=== PATIENT | female | born 1985 | race Caucasian/White ===

== ENCOUNTER 2020-12-23 20:03 | Emergency (ER) | payer BC ==
[~2020-12-23] VITALS: Ht 154.9 cm; Wt 45.5 kg
--- NOTE | 2020-12-23 20:29 | ED Upper Extremity ---
General Stated Complaint: FINGER INJURY Source: patient Exam Limitations: no limitations History of Present Illness Date Seen by Provider: Dec 23, 2020 Time Seen by Provider: 20:27 Initial Comments To ER with a right thumb injury. Was doing some home repairs when she got a large splinter in the pad of the right thumb. Tetanus is not up-to-date. They were able to remove the splinter and they think that they removed all of it. However there is significant pain to the right thumb, she cannot flex it at the IP joint and it is now swollen. Onset: just prior to arrival Severity: moderate Pain/Injury Location: right thumb Method of Injury: direct blow Modifying Factors: Worse With Movement Allergies and Home Medications Allergies Coded Allergies: No Known Drug Allergies (Unverified , 12/23/20) Patient Home Medication List Home Medication List Reviewed: Yes Review of Systems Constitutional: see HPI EENTM: see HPI Respiratory: no symptoms reported Cardiovascular: no symptoms reported Genitourinary: no symptoms reported Musculoskeletal: see HPI Skin: no symptoms reported Psychiatric/Neurological: No Symptoms Reported Physical Exam Vital Signs Capillary Refill : Height, Weight, BMI Height: '" Weight: lbs. oz. kg; BMI Method: General Appearance: WD/WN, no apparent distress Respiratory: no respiratory distress, no accessory muscle use Shoulder: normal inspection, non-tender Elbow/Forearm: normal inspection, non-tender Wrist: Yes normal inspection, Yes non-tender Hand: Right (There is a puncture wound to the pad of the right thumb, there is significant swelling to the pad of the thumb) Neurologic/Tendon: normal sensation Neurologic/Psychiatric: alert, normal mood/affect, oriented x 3 Skin: normal color, warm/dry Progress/Results/Core Measures Results/Orders My Orders Orders - DANILO ALVAREZ APRN Hand, Right, 3 Views (12/23/20 20:26) Rx-Hydrocodone/Apap 5-325 Mg (Rx-Vicodin (12/23/20 20:30) Dipht,Pertuss(Acell),Tet Adult (Boostrix (12/23/20 20:30) Cephalexin Capsule (Keflex Capsule) (12/23/20 20:30) Departure Communication (Admissions) 2100-there is no foreign body on clinical exam, nothing on x-ray or on bedside ultrasound. Impression Primary Impression: Puncture wound of finger Disposition: 01 HOME, SELF-CARE Condition: Stable Departure-Patient Inst. Decision time for Depature: 20:59 Referrals: NO,LOCAL PHYSICIAN (PCP/Family) Primary Care Physician Patient Instructions: Wound Care Add. Discharge Instructions: 1. Put some ice on this when you get home, this should help with pain control. Follow-up with your doctor next week. Return to ER for any concerns. Antibiotic as directed. Scripts Cephalexin (Cephalexin) 500 Mg Tablet 500 MG PO TID, #15 TAB Prov: DANILO ALVAREZ APRN 12/23/20 DANILO ALVAREZ APRN Dec 23, 2020 20:29
[2020-12-23] MEDS ORDERED: CEPHALEXIN 250 MG (KEFLEX) CAP PO SCH (20:30)
[2020-12-23] MEDS ORDERED: TETANUS,DIPTH,PERTUSS P/F (BOOSTRIX) 0.5 ML VIAL IM ONE (20:30)
--- NOTE | 2020-12-23 20:56 | Diagnostic Imaging Report ---
HAND, RIGHT, 3 VIEWS COMPARISON: None available. INDICATION: Thumb pain. Evaluate for foreign body. TECHNIQUE: PA, oblique and lateral views of the hand. FINDINGS: No fracture or traumatic malalignment. No radiopaque foreign body. Joint spaces are well-maintained. IMPRESSION: 1. No fracture or radiopaque foreign body. Dictated by: Dictated on workstation # [id number]
[2020-12-23] MEDS ORDERED: CEPH500T PO (21:01)
[2020-12-23 21:22] VITALS: BP 123/61
== END 2020-12-23 21:22 | disposition home or self-care (01) ==
LOC: ER 20:08
DX: S61.031A Puncture wound without foreign body of right thumb without damage to nail, initial encounter (principal); Z23 Encounter for immunization; W45.8XXA Other foreign body or object entering through skin, initial encounter
CPT/HCPCS: 73130; 90715